=== PATIENT | male | born 1980 | race Caucasian/White ===

== ENCOUNTER 2020-05-22 21:39 | Emergency (ER) | payer MEDICAID, OTHER ==
[~2020-05-22] VITALS: Ht 172.7 cm; Wt 70.5 kg
[~2020-05-22 21:39] MED LIST: AZIT250T PO; SUCR1ORA2 PO
[2020-05-22 22:06] VITALS: BP 123/87
== END 2020-05-22 23:44 | disposition left against medical advice (07) ==
LOC: ER 21:40
DX: M54.9 Dorsalgia, unspecified (principal); Z53.21 Procedure and treatment not carried out due to patient leaving prior to being seen by health care provider